=== PATIENT | female | born 1985 | race Caucasian/White ===

== ENCOUNTER 2017-12-30 11:08 | Inpatient (IN) | payer BC ==
[2017-12-30] MEDS ORDERED: Nalbuphine 20 MG/ML 1 ML Syringe IVPUSH PRN (11:32)
[2017-12-30] MEDS ORDERED: Sodium Chloride 0.9% 10 ML Syringe FLUSH PRN (11:32)
[2017-12-30] MEDS ORDERED: Ondansetron 4 MG/2 ML SDV IVPUSH PRN (11:32)
--- NOTE | 2017-12-30 11:34 | PCM.LDHP ---
L&D History of Present Illness - General Date of Service: 12/30/17 Admit Problem/Dx: Patient Status Order with Admit Dx/Problem 12/30/17 11:32 Patient Status [ADT] Routine Admission Diagnosis/Problem Admission Diagnosis/Problem Normal Source of Information: Patient History Limitations: Reports: No Limitations - History of Present Illness Introduction:: Patient is a 32 y/o at 39 1/7 wks who presents to L&D for IOL after clinic appointment today. Today noted decreased FM the last 2 days. NST in clinic was non reactive with several small variable decelerations. Patient noted to be 4 cm dilated in clinic. Reviewed options for additional testing vs moving on to IOL and patient ultimately elected for IOL. Otherwise doing well. 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: 2 Social & Family History - Family History Family Medical History: Noncontributory - Tobacco Use Smoking Status *Q: Former Smoker - Alcohol Use Alcohol Use History: No - Recreational Drug Use Recreational Drug Use: No H&P Review of Systems - Review of Systems: Review Of Systems: See Below General: Reports: No Symptoms Pulmonary: Reports: No Symptoms Cardiovascular: Reports: No Symptoms Gastrointestinal: Reports: No Symptoms Genitourinary: Reports: No Symptoms Musculoskeletal: Reports: No Symptoms Psychiatric: Reports: No Symptoms Neurological: Reports: No Symptoms L&D Exam - Exam Exam: See Below - OB Specific Contraction Intensity: Mild Movement: Active Heart Tones: Present Heart Tones per Min: 160 Heart Rate (FHR) Variability: Moderate (6-25 bmp) Presentation: Vertex - Guthrie Score Guthrie Score Cervix Position: Midposition Guthrie Score Consistency: Soft Guthrie Score Effacement: >80% Guthrie Score Dilation: 3-4 cm Guthrie Score 's Station: -2 Guthrie Score Total: 9 - Exam General: Alert, Oriented, Cooperative Lungs: Clear to Auscultation, Normal Respiratory Effort Cardiovascular: Regular Rate, Regular Rhythm GI/Abdominal Exam: Soft, Non-Tender Genitourinary: Normal external exam Extremities: Normal Inspection Skin: Warm, Dry, Intact - Patient Data Result Diagrams: 12/30/17 11:30 - Problem List (1) 39 weeks gestation of SNOMED Code(s): 28921484 ICD Code: Z3A.39 - 39 WEEKS GESTATION OF Status: Acute Current Visit: Yes Problem List Initiated/Reviewed/Updated: Yes Orders Last 24hrs: Active Orders 24 hr Category Date Time Status Patient Status [ADT] Routine ADT 12/30/17 11:32 Ordered Activity as Tolerated [RC] PFP Care 12/30/17 11:32 Ordered Communication Order [RC] ASDIRECTED Care 12/30/17 11:32 Ordered Heart Tones [RC] ASDIRECTED Care 12/30/17 11:33 Ordered Non Stress Test [RC] PER UNIT ROUTINE Care 12/30/17 11:32 Ordered Notify Provider [RC] PFP Care 12/30/17 11:32 Ordered Notify Provider [RC] PRN Care 12/30/17 11:32 Ordered Peripheral IV Care [RC] . DIRECTED Care 12/30/17 11:33 Ordered Vital Signs [RC] PER UNIT ROUTINE Care 12/30/17 11:32 Ordered Regular Diet [DIET] Diet 12/30/17 Lunch Ordered CBC W/O DIFF,HEMOGRAM [HEME] Routine Lab 12/30/17 11:32 Ordered RAPID PLASMA REAGIN,RPR [CHEM] Routine Lab 12/30/17 11:32 Ordered TYPE AND SCREEN [BBK] Routine Lab 12/30/17 11:32 Ordered Lactated Ringers [Ringers, Lactated] 1,000 ml Med 12/30/17 11:45 Ordered IV ASDIRECTED Nalbuphine [Nubain] Med 12/30/17 11:32 Ordered 10 mg IVPUSH Q2H PRN Ondansetron [Zofran] Med 12/30/17 11:32 Ordered 4 mg IVPUSH Q4H PRN Oxytocin/Lactated Ringers [Pitocin in LR 10 Units/1,000 Med 12/30/17 11:45 Ordered ML] 10 unit in 1,000 ml IV .CONTINUOUS Sodium Chloride 0.9% [Saline Flush] Med 12/30/17 11:32 Ordered 10 ml FLUSH ASDIRECTED PRN Electronic Heart Tones Ext w TOCO [WOMSER] Ot 12/30/17 11:32 Ordered Routine Electronic Heart Tones Internal [WOMSER] Per Unit Ot 12/30/17 11:32 Ordered Routine Peripheral IV Insertion Adult [OM.PC] Routine Ot 12/30/17 11:32 Ordered Resuscitation Status Routine Resus Stat 12/30/17 11:32 Ordered Assessment/Plan Comment:: 32 y/o at 39 1/7 wks presents for IOL after complaints of decreased FM and NRST in clinic * Labs drawn * Pain management per patient preference * AROM performed. Consider pitocin if needed * GBS negative, no need for antibiotics * Anticipate
[2017-12-30] MEDS ORDERED: Oxytocin/Lactated Ringers 10 UNIT/1,000 ML BAG IV SCH (11:45)
--- NOTE | 2017-12-30 12:56 | PCM.PREANE ---
Preanesthetic Assessment - Procedure Proposed Procedure: josefina - Anesthesia/Transfusion/Family Hx Anesthesia History: Prior Anesthesia Without Reaction Family History of Anesthesia Reaction: No Transfusion History: No Prior Transfusion(s) - Review of Systems General: No Symptoms Pulmonary: No Symptoms Cardiovascular: No Symptoms Gastrointestinal: No Symptoms Neurological: No Symptoms Other: Reports: None - Physical Assessment Pulse: 99 O2 Sat by Pulse Oximetry: 99 Respiratory Rate: 20 Height: 5 ft 5 in Weight: 96.615 kg ASA Class: 2 Mental Status: Alert & Oriented x3 Airway Class: Mallampati = 1 Dentition: Reports: Normal Dentition Thyro-Mental Finger Breadths: 3 Mouth Opening Finger Breadths: 3 ROM/Head Extension: Full Lungs: Clear to Auscultation, Normal Respiratory Effort Cardiovascular: Regular Rate, Regular Rhythm - Lab Values: Laboratory Last Values WBC 10.49 K/mm3 (3.98-10.04) H 12/30/17 11:30 RBC 4.23 M/mm3 (3.98-5.22) 12/30/17 11:30 Hgb 12.2 gm/L (11.2-15.7) 12/30/17 11:30 Hct 37.4 % (34.1-44.9) 12/30/17 11:30 MCV 88.4 fl (79.4-94.8) 12/30/17 11:30 MCH 28.8 pg (25.6-32.2) 12/30/17 11:30 MCHC 32.6 g/dl (32.2-35.5) 12/30/17 11:30 RDW Std Deviation 45.8 fL (36.4-46.3) 12/30/17 11:30 Plt Count 128 K/mm3 (182-369) L 12/30/17 11:30 MPV 12.5 fl (9.4-12.3) H 12/30/17 11:30 - Allergies Allergies/Adverse Reactions: Allergies Allergy/AdvReac Type Severity Reaction Status Date / Time No Known Allergies Allergy Verified 06/28/15 13:24 - Blood Blood Available: No - Acknowledgements Anesthesia Type Planned: Epidural Pt an Appropriate Candidate for the Planned Anesthesia: Yes Alternatives and Risks of Anesthesia Discussed w Pt/Guardian: Yes Pt/Guardian Understands and Agrees with Anesthesia Plan: Yes PreAnesthesia Questionnaire - Past Health History Medical/Surgical History: Denies Medical/Surgical History Cardiovascular History: Reports: None Respiratory History: Reports: None Gastrointestinal History: Reports: GERD (with preg) 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) Para: 2 Other OB/BYN History: PCOS Other Hematologic History: Pt states she has had low platelets but they have been about 120,000 - SUBSTANCE USE Smoking Status *Q: Never Smoker Tobacco Use Within Last Twelve Months: No Second Hand Smoke Exposure: No Days Per Week of Alcohol Use: 0 Recreational Drug Use History: No - HOME MEDS Home Medications: Home Meds PNV95/Ferrous Fumarate/FA [ Tablet] 1 each PO DAILY 06/28/15 [History] Docusate Sodium [Colace] 100 mg PO BID PRN #0 cap 06/29/15 [Rx] - CURRENT (IN HOUSE) MEDS Current Meds: Current Medications Lactated Ringer's (Ringers, Lactated) 1,000 mls @ 40 mls/hr IV ASDIRECTED MATEUS Oxytocin/Lactated Ringer's (Pitocin In Lr 10 Units/1,000 Ml) 10 unit in 1,000 mls @ 500 mls/hr IV .CONTINUOUS MATEUS Nalbuphine HCl (Nubain) 10 mg IVPUSH Q2H PRN PRN Reason: pain Ondansetron HCl (Zofran) 4 mg IVPUSH Q4H PRN PRN Reason: Nausea/Vomiting Sodium Chloride (Saline Flush) 10 ml FLUSH ASDIRECTED PRN PRN Reason: Keep Vein Open
[2017-12-30] MEDS ORDERED: ePHEDrine 50 MG/ML SDV IVPUSH PRN (13:21)
[2017-12-30] MEDS ORDERED: fentaNYL 100 MCG/2 ML SDV EPIDUR PRN (13:21)
[2017-12-30] MEDS ORDERED: diphenhydrAMINE 50 MG/ML SDV IVPUSH PRN (13:21)
[2017-12-30] MEDS ORDERED: Bupivacaine/fentaNYL/NS 100 ML Bag EPIDUR SCH (13:30)
[2017-12-30] MEDS: Lactated Ringers 1,000 ML IV SCH ×2 (13:50→14:14)
--- NOTE | 2017-12-30 19:41 | PCM.DEL ---
L & D Note - General Info Date of Service: 12/30/17 - Delivery Note Labor: Induced by ARM Delivery Outcome: Livebirth Infant Delivery Method: Spontaneous Vaginal Delivery-Single Infant Delivery Mode: Spontaneous Presentation: Left Occiput Anterior (MANUEL) Nuchal Cord: None Anesthesia Type: Epidural Amniotic Fluid Description: Clear Episiotomy Type: None Laceration: 2nd Degree, Perineal Suture type: Vicryl Suture size: 2-0 Placenta: Intact, Spontaneous Cord: 3 Vessels Estimated Blood Loss: 300 : Bulb Syringe, Stimulated, Warmed, Gibbon Used Score 1 min: 9 Score 5 min: 9 Delivery Comments (Free Text/Narrative):: Patient found to be complete and began pushing. With maternal pushing effort head delivered from an MANUEL presentation. No nuchal cord present. With gentle downward traction the shoulders and body delivered. placed on maternal abdomen. Cord clamped and cut. Cord blood obtained. Placenta allowed time separate and spontaneously expelled. Inspection of the perineum showed a 2nd degree laceration which was repaired with a 2-0 vicryl in the typical fashion. - General Info Date of Service: 12/30/17 - Patient Data Vitals - Most Recent: Last Vital Signs Temp 36.6 C 12/30/17 11:32 Pulse 99 12/30/17 12:55 Resp 20 12/30/17 12:55 BP 122/79 12/30/17 11:32 Pulse Ox 99 12/30/17 12:55 Weight - Most Recent: 96.615 kg I&O - Last 24 Hours: Intake & Output 12/30/17 12/30/17 12/30/17 06:59 14:59 22:59 Intake Total 2120 Balance 2120 Lab Results Last 24 Hours: Laboratory Results - last 24 hr 12/30/17 12/30/17 Range/Units 11:30 11:30 WBC 10.49 H (3.98-10.04) K/mm3 RBC 4.23 (3.98-5.22) M/mm3 Hgb 12.2 (11.2-15.7) gm/L Hct 37.4 (34.1-44.9) % MCV 88.4 (79.4-94.8) fl MCH 28.8 (25.6-32.2) pg MCHC 32.6 (32.2-35.5) g/dl RDW Std Deviation 45.8 (36.4-46.3) fL Plt Count 128 L (182-369) K/mm3 MPV 12.5 H (9.4-12.3) fl Blood Type A POSITIVE Gel Antibody Screen Negative Med Orders - Current: Current Medications Diphenhydramine HCl (Benadryl) 25 mg IVPUSH Q6H PRN PRN Reason: pruritis Ephedrine Sulfate (Ephedrine Sulfate) 5 mg IVPUSH ASDIRECTED PRN PRN Reason: Hypotension Fentanyl (Sublimaze) 100 mcg EPIDUR Q3H PRN PRN Reason: Pain Last Admin: 12/30/17 14:39 Dose: 100 mcg Fentanyl/Bupivacaine HCl (Fentanyl/Bupivacaine/Ns 2 Mcg-0.125% 100 Ml) 100 ml EPIDUR ASDIRECTED MATEUS Last Admin: 12/30/17 14:39 Dose: 100 ml Lactated Ringer's (Ringers, Lactated) 1,000 mls @ 40 mls/hr IV ASDIRECTED MATEUS Last Admin: 12/30/17 14:14 Dose: 999 mls/hr Oxytocin/Lactated Ringer's (Pitocin In Lr 10 Units/1,000 Ml) 10 unit in 1,000 mls @ 500 mls/hr IV .CONTINUOUS MATEUS Nalbuphine HCl (Nubain) 10 mg IVPUSH Q2H PRN PRN Reason: pain Ondansetron HCl (Zofran) 4 mg IVPUSH Q4H PRN PRN Reason: Nausea/Vomiting Sodium Chloride (Saline Flush) 10 ml FLUSH ASDIRECTED PRN PRN Reason: Keep Vein Open - Problem List & Annotations (1) 39 weeks gestation of SNOMED Code(s): 29340217 Code(s): Z3A.39 - 39 WEEKS GESTATION OF Status: Acute Current Visit: Yes (2) Vaginal delivery SNOMED Code(s): 994711277 Code(s): O80 - ENCOUNTER FOR FULL-TERM UNCOMPLICATED DELIVERY Status: Acute Current Visit: No - Problem List Review Problem List Initiated/Reviewed/Updated: Yes - My Orders Last 24 Hours: My Active Orders 12/30/17 11:30 RAPID PLASMA REAGIN,RPR [CHEM] Routine 12/30/17 11:32 Patient Status [ADT] Routine Activity as Tolerated [RC] PFP Communication Order [RC] ASDIRECTED Notify Provider [RC] PFP Notify Provider [RC] PRN Vital Signs [RC] PER UNIT ROUTINE Nalbuphine [Nubain] 10 mg IVPUSH Q2H PRN Ondansetron [Zofran] 4 mg IVPUSH Q4H PRN Sodium Chloride 0.9% [Saline Flush] 10 ml FLUSH ASDIRECTED PRN Electronic Heart Tones Ext w TOCO [WOMSER] Routine Electronic Heart Tones Internal [WOMSER] Per Unit Routine Peripheral IV Insertion Adult [OM.PC] Routine Resuscitation Status Routine 12/30/17 11:33 Heart Tones [RC] ASDIRECTED Peripheral IV Care [RC] . DIRECTED 12/30/17 11:45 Lactated Ringers [Ringers, Lactated] 1,000 ml IV ASDIRECTED Oxytocin/Lactated Ringers [Pitocin in LR 10 Units/1,000 ML] 10 unit in 1,000 ml IV .CONTINUOUS 12/30/17 Lunch Regular Diet [DIET] - Assessment Assessment:: 32 y/o G3 now P3003 PPD#0 from at 39 1/7 wks - Plan Plan:: * Routine cares * Encourage breast feeding * Discharge home in 1-2 days
[2017-12-30] MEDS ORDERED: Witch Hazel Medicated Pads 100/Jar TOP PRN (20:17)
[2017-12-30] MEDS ORDERED: Benzocaine/Menthol 20%-0.5% Spray 56 GM Canister TOP PRN (20:17)
[2017-12-30] MEDS ORDERED: Lanolin 100% Cream 7 GM Tube TOP PRN (20:17)
[2017-12-30] MEDS: Ibuprofen 600 MG Tab PO PRN (21:19)
[2017-12-30] MEDS ORDERED: Bupivacaine 0.25% 10 ML SDV ONE (22:00)
[2017-12-31] MEDS: Acetaminophen 325 MG Tab PO PRN ×2 (01:28→20:54)
[2017-12-31] MEDS: Ibuprofen 600 MG Tab PO PRN ×4 (03:28→22:50)
--- NOTE | 2017-12-31 07:04 | PCM.PNPP ---
- General Info Date of Service: 12/31/17 Functional Status: Reports: Pain Controlled, Tolerating Diet, Ambulating, Urinating - Review of Systems General: Reports: No Symptoms Pulmonary: Reports: No Symptoms Cardiovascular: Reports: No Symptoms Gastrointestinal: Reports: No Symptoms Genitourinary: Reports: No Symptoms Neurological: Reports: No Symptoms - Patient Data Vital Signs - Most Recent: Last Vital Signs Temp 36.6 C 12/31/17 03:30 Pulse 67 12/31/17 03:30 Resp 15 12/31/17 03:30 BP 102/73 12/31/17 03:30 Pulse Ox 97 12/31/17 03:30 Weight - Most Recent: 96.615 kg I&O - Last 24 Hours: Intake & Output 12/30/17 12/31/17 12/31/17 22:59 06:59 14:59 Intake Total 4120 Balance 4120 Lab Results - Last 24 Hours: Laboratory Results - last 24 hr 12/30/17 12/30/17 Range/Units 11:30 11:30 WBC 10.49 H (3.98-10.04) K/mm3 RBC 4.23 (3.98-5.22) M/mm3 Hgb 12.2 (11.2-15.7) gm/L Hct 37.4 (34.1-44.9) % MCV 88.4 (79.4-94.8) fl MCH 28.8 (25.6-32.2) pg MCHC 32.6 (32.2-35.5) g/dl RDW Std Deviation 45.8 (36.4-46.3) fL Plt Count 128 L (182-369) K/mm3 MPV 12.5 H (9.4-12.3) fl Blood Type A POSITIVE Gel Antibody Screen Negative Med Orders - Current: Current Medications Acetaminophen (Tylenol) 650 mg PO Q4H PRN PRN Reason: mild pain or fever Last Admin: 12/31/17 01:28 Dose: 650 mg Benzocaine/Menthol (Dermoplast Pain Relief [place]) 0 gm TOP ASDIRECTED PRN PRN Reason: Perineal Comfort Measure Last Admin: 12/30/17 21:19 Dose: 1 canister Docusate Sodium (Colace) 100 mg PO BID PRN PRN Reason: Constipation Emollient Ointment (Lansinoh Hpa) 0 gm TOP ASDIRECTED PRN PRN Reason: Sore Nipples Ibuprofen (Motrin) 600 mg PO Q6H PRN PRN Reason: Mild pain or fever Last Admin: 12/31/17 03:28 Dose: 600 mg Witch Yuliet (Tucks) 1 pad TOP ASDIRECTED PRN PRN Reason: Hemorrhoid pain Last Admin: 12/30/17 21:19 Dose: 1 tub Discontinued Medications Diphenhydramine HCl (Benadryl) 25 mg IVPUSH Q6H PRN PRN Reason: pruritis Ephedrine Sulfate (Ephedrine Sulfate) 5 mg IVPUSH ASDIRECTED PRN PRN Reason: Hypotension Fentanyl (Sublimaze) 100 mcg EPIDUR Q3H PRN PRN Reason: Pain Last Admin: 12/30/17 14:39 Dose: 100 mcg Fentanyl/Bupivacaine HCl (Fentanyl/Bupivacaine/Ns 2 Mcg-0.125% 100 Ml) 100 ml EPIDUR ASDIRECTED MATEUS Last Admin: 12/30/17 14:39 Dose: 100 ml Lactated Ringer's (Ringers, Lactated) 1,000 mls @ 40 mls/hr IV ASDIRECTED MATEUS Last Admin: 12/30/17 14:14 Dose: 999 mls/hr Oxytocin/Lactated Ringer's (Pitocin In Lr 10 Units/1,000 Ml) 10 unit in 1,000 mls @ 500 mls/hr IV .CONTINUOUS MATEUS Last Admin: 12/30/17 21:21 Dose: 500 mls/hr Nalbuphine HCl (Nubain) 10 mg IVPUSH Q2H PRN PRN Reason: pain Ondansetron HCl (Zofran) 4 mg IVPUSH Q4H PRN PRN Reason: Nausea/Vomiting Sodium Chloride (Saline Flush) 10 ml FLUSH ASDIRECTED PRN PRN Reason: Keep Vein Open - Infant Interaction Infant Disposition, : [place] in Room with Family Interaction: Holding Infant Infant Feeding: Breastfed ; Nursed Well Support Person: - Recovery Exam Fundal Tone: Firm Fundal Level: 1 Fingerbreadths Below Umbilicus Fundal Placement: Midline Lochia Amount: Small Lochia Color: Rubra/Red Perineum Description: Other (see below) Other Perinuem Description: 2nd degree laceration with repair Episiotomy/Laceration: Approximated Bladder Status: Voiding Urinary Elimination: Voided - Exam General: Alert, Oriented, Cooperative GI/Abdominal Exam: Soft, Non-Tender Extremities: Normal Inspection Skin: Warm, Dry, Intact - Problem List & Annotations (1) 39 weeks gestation of SNOMED Code(s): 46774320 Code(s): Z3A.39 - 39 WEEKS GESTATION OF Status: Acute Current Visit: Yes (2) Vaginal delivery SNOMED Code(s): 973513848 Code(s): O80 - ENCOUNTER FOR FULL-TERM UNCOMPLICATED DELIVERY Status: Acute Current Visit: No - Problem List Review Problem List Initiated/Reviewed/Updated: Yes - My Orders Last 24 Hours: My Active Orders 12/30/17 11:30 RAPID PLASMA REAGIN,RPR [CHEM] Routine 12/30/17 11:32 Resuscitation Status Routine 12/30/17 11:33 Heart Tones [RC] ASDIRECTED 12/30/17 20:17 Activity as Tolerated [RC] PER UNIT ROUTINE Vital Signs [RC] 03,09,15,21 Acetaminophen [Tylenol] 650 mg PO Q4H PRN Benzocaine/Menthol [Dermoplast Pain Relief [place]] See Dose Instructions TOP ASDIRECTED PRN Docusate Sodium [Colace] 100 mg PO BID PRN Ibuprofen [Motrin] 600 mg PO Q6H PRN Lanolin [Lansinoh HPA] See Dose Instructions TOP ASDIRECTED PRN Witch Yuliet [Tucks] 1 pad TOP ASDIRECTED PRN Assess Lochia [WOMSER] Per Unit Routine Assess Uterine Involution [WOMSER] Per Unit Routine Breast Pump [WOMSER] Per Unit Routine Heat Therapy [OM.PC] PRN Ice Therapy [OM.PC] Per Unit Routine Perineal Care [OM.PC] Per Unit Routine Peripheral IV Discontinue [OM.PC] Routine Sitz Bath [OM.PC] Per Unit Routine 12/30/17 Dinner Regular Diet [DIET] 12/31/17 20:17 Heat Therapy [OM.PC] PRN - Assessment Assessment:: 32 y/o G3 now P3003 PPD#1 from at 39 1/7 wks - Plan Plan:: * Routine cares * Encourage breast feeding * Discharge home tomorrow
[2017-12-31] MEDS: Docusate Sodium 100 MG Cap PO PRN (10:05)
[2018-01-01] MEDS: Docusate Sodium 100 MG Cap PO PRN (00:18)
--- NOTE | 2018-01-01 06:50 | PCM.DCSUM1 ---
Discharge Summary - Discharge Data Discharge Date: 01/01/18 Discharge Disposition: Home, Self-Care 01 Condition: Good - Discharge Diagnosis/Problem(s) (1) 39 weeks gestation of SNOMED Code(s): 79500879 ICD Code: Z3A.39 - 39 WEEKS GESTATION OF Status: Acute Current Visit: Yes (2) Vaginal delivery SNOMED Code(s): 380942117 ICD Code: O80 - ENCOUNTER FOR FULL-TERM UNCOMPLICATED DELIVERY Status: Acute Current Visit: No - Patient Summary/Data Complications: None Consults: None Recommended Follow-up Testing/Procedures: Follow up in 3-6 weeks for check Hospital Course: 32 y/o at 39 1/7 wks admitted from clinic after complaints of decreased fm and NRNST. IOL done with AROM alone. She progressed well to complete dilation and underwent an uncomplicated . See delivery note. she did well and was discharged home on PPD#2 - Patient Instructions Diet: Regular Diet as Tolerated Activity: As Tolerated Activity, Other: Pelvic Rest for 6 weeks Driving: May Drive Today Showering/Bathing: May Shower Showering/Bathing, Other: May Bathe Notify Provider of: Fever, Increased Pain, Swelling and Redness, Drainage, Nausea and/or Vomiting - Discharge Plan *PRESCRIPTION DRUG MONITORING PROGRAM REVIEWED*: Not Applicable *COPY OF PRESCRIPTION DRUG MONITORING REPORT IN PATIENT CASSIE: Not Applicable Home Medications: Home Meds PNV95/Ferrous Fumarate/FA [ Tablet] 1 each PO DAILY 06/28/15 [History] Docusate Sodium [Colace] 100 mg PO BID PRN #0 cap 06/29/15 [Rx] Ibuprofen [Motrin] 600 mg PO Q6H PRN tablet 12/31/17 [Rx] Referrals: Stella Gordon MD [Primary Care Provider] - (3-6 weeks for check ) - Discharge Summary/Plan Comment DC Time >30 min.: No - Patient Data Vitals - Most Recent: Last Vital Signs Temp 36.6 C 01/01/18 03:05 Pulse 79 01/01/18 03:05 Resp 15 01/01/18 03:05 BP 126/89 01/01/18 03:05 Pulse Ox 99 01/01/18 03:05 Weight - Most Recent: 96.615 kg I&O - Last 24 hours: Intake & Output 12/31/17 12/31/17 01/01/18 14:59 22:59 06:59 Intake Total 240 Balance 240 Lab Results - Last 24 hrs: Laboratory Results - last 24 hr 12/30/17 Range/Units 11:30 RPR Non-reactive (NONREACTIVE) Med Orders - Current: Current Medications Acetaminophen (Tylenol) 650 mg PO Q4H PRN PRN Reason: mild pain or fever Last Admin: 12/31/17 20:54 Dose: 650 mg Benzocaine/Menthol (Dermoplast Pain Relief [place]) 0 gm TOP ASDIRECTED PRN PRN Reason: Perineal Comfort Measure Last Admin: 12/30/17 21:19 Dose: 1 canister Docusate Sodium (Colace) 100 mg PO BID PRN PRN Reason: Constipation Last Admin: 01/01/18 00:18 Dose: 100 mg Emollient Ointment (Lansinoh Hpa) 0 gm TOP ASDIRECTED PRN PRN Reason: Sore Nipples Ibuprofen (Motrin) 600 mg PO Q6H PRN PRN Reason: Mild pain or fever Last Admin: 12/31/17 22:50 Dose: 600 mg Witch Yuliet (Tucks) 1 pad TOP ASDIRECTED PRN PRN Reason: Hemorrhoid pain Last Admin: 12/30/17 21:19 Dose: 1 tub Discontinued Medications Bupivacaine HCl (Sensorcaine-Mpf 0.25%) 10 ml .ROUTE .STK-MED ONE Stop: 12/30/17 22:01 Diphenhydramine HCl (Benadryl) 25 mg IVPUSH Q6H PRN PRN Reason: pruritis Ephedrine Sulfate (Ephedrine Sulfate) 5 mg IVPUSH ASDIRECTED PRN PRN Reason: Hypotension Fentanyl (Sublimaze) 100 mcg EPIDUR Q3H PRN PRN Reason: Pain Last Admin: 12/30/17 14:39 Dose: 100 mcg Fentanyl/Bupivacaine HCl (Fentanyl/Bupivacaine/Ns 2 Mcg-0.125% 100 Ml) 100 ml EPIDUR ASDIRECTED [facility] Last Admin: 12/30/17 14:39 Dose: 100 ml Lactated Ringer's (Ringers, Lactated) 1,000 mls @ 40 mls/hr IV ASDIRECTED [facility] Last Admin: 12/30/17 14:14 Dose: 999 mls/hr Oxytocin/Lactated Ringer's (Pitocin In Lr 10 Units/1,000 Ml) 10 unit in 1,000 mls @ 500 mls/hr IV .CONTINUOUS MATEUS Last Admin: 12/30/17 21:21 Dose: 500 mls/hr Nalbuphine HCl (Nubain) 10 mg IVPUSH Q2H PRN PRN Reason: pain Ondansetron HCl (Zofran) 4 mg IVPUSH Q4H PRN PRN Reason: Nausea/Vomiting Sodium Chloride (Saline Flush) 10 ml FLUSH ASDIRECTED PRN PRN Reason: Keep Vein Open
--- NOTE | 2018-01-01 06:50 | PCM.PNPP ---
- General Info Date of Service: 01/01/18 Functional Status: Reports: Pain Controlled, Tolerating Diet, Ambulating, Urinating - Review of Systems General: Reports: No Symptoms Pulmonary: Reports: No Symptoms Cardiovascular: Reports: No Symptoms Gastrointestinal: Reports: No Symptoms Genitourinary: Reports: No Symptoms Musculoskeletal: Reports: No Symptoms - Patient Data Vital Signs - Most Recent: Last Vital Signs Temp 36.6 C 01/01/18 03:05 Pulse 79 01/01/18 03:05 Resp 15 01/01/18 03:05 BP 126/89 01/01/18 03:05 Pulse Ox 99 01/01/18 03:05 Weight - Most Recent: 96.615 kg I&O - Last 24 Hours: Intake & Output 12/31/17 12/31/17 01/01/18 14:59 22:59 06:59 Intake Total 240 Balance 240 Lab Results - Last 24 Hours: Laboratory Results - last 24 hr 12/30/17 Range/Units 11:30 RPR Non-reactive (NONREACTIVE) Med Orders - Current: Current Medications Acetaminophen (Tylenol) 650 mg PO Q4H PRN PRN Reason: mild pain or fever Last Admin: 12/31/17 20:54 Dose: 650 mg Benzocaine/Menthol (Dermoplast Pain Relief [place]) 0 gm TOP ASDIRECTED PRN PRN Reason: Perineal Comfort Measure Last Admin: 12/30/17 21:19 Dose: 1 canister Docusate Sodium (Colace) 100 mg PO BID PRN PRN Reason: Constipation Last Admin: 01/01/18 00:18 Dose: 100 mg Emollient Ointment (Lansinoh Hpa) 0 gm TOP ASDIRECTED PRN PRN Reason: Sore Nipples Ibuprofen (Motrin) 600 mg PO Q6H PRN PRN Reason: Mild pain or fever Last Admin: 12/31/17 22:50 Dose: 600 mg Witch [place] (Tucks) 1 pad TOP ASDIRECTED PRN PRN Reason: Hemorrhoid pain Last Admin: 12/30/17 21:19 Dose: 1 tub Discontinued Medications Bupivacaine HCl (Sensorcaine-Mpf 0.25%) 10 ml .ROUTE .STK-MED ONE Stop: 12/30/17 22:01 Diphenhydramine HCl (Benadryl) 25 mg IVPUSH Q6H PRN PRN Reason: pruritis Ephedrine Sulfate (Ephedrine Sulfate) 5 mg IVPUSH ASDIRECTED PRN PRN Reason: Hypotension Fentanyl (Sublimaze) 100 mcg EPIDUR Q3H PRN PRN Reason: Pain Last Admin: 12/30/17 14:39 Dose: 100 mcg Fentanyl/Bupivacaine HCl (Fentanyl/Bupivacaine/Ns 2 Mcg-0.125% 100 Ml) 100 ml EPIDUR ASDIRECTED MATEUS Last Admin: 12/30/17 14:39 Dose: 100 ml Lactated Ringer's (Ringers, Lactated) 1,000 mls @ 40 mls/hr IV ASDIRECTED MATEUS Last Admin: 12/30/17 14:14 Dose: 999 mls/hr Oxytocin/Lactated Ringer's (Pitocin In Lr 10 Units/1,000 Ml) 10 unit in 1,000 mls @ 500 mls/hr IV .CONTINUOUS MATEUS Last Admin: 12/30/17 21:21 Dose: 500 mls/hr Nalbuphine HCl (Nubain) 10 mg IVPUSH Q2H PRN PRN Reason: pain Ondansetron HCl (Zofran) 4 mg IVPUSH Q4H PRN PRN Reason: Nausea/Vomiting Sodium Chloride (Saline Flush) 10 ml FLUSH ASDIRECTED PRN PRN Reason: Keep Vein Open - Interaction Infant Disposition, : [place] in Room with Family Interaction: Holding Feeding: Breastfed Infant; Nursed Well Support Person: - Recovery Exam Fundal Tone: Firm Fundal Level: 1 Fingerbreadths Below Umbilicus Fundal Placement: Midline Lochia Amount: Small Lochia Color: Rubra/Red Perineum Description: Other (see below) Other Perinuem Description: 2nd degree laceration with repair Episiotomy/Laceration: Approximated Bladder Status: Voiding Urinary Elimination: Voided - Exam General: Alert, Oriented, Cooperative GI/Abdominal Exam: Soft, Non-Tender Extremities: Normal Inspection Skin: Warm, Dry, Intact - Problem List & Annotations (1) 39 weeks gestation of SNOMED Code(s): 21836017 Code(s): Z3A.39 - 39 WEEKS GESTATION OF Status: Acute Current Visit: Yes (2) Vaginal delivery SNOMED Code(s): 281191439 Code(s): O80 - ENCOUNTER FOR FULL-TERM UNCOMPLICATED DELIVERY Status: Acute Current Visit: No - Problem List Review Problem List Initiated/Reviewed/Updated: Yes - My Orders Last 24 Hours: My Active Orders 12/31/17 20:17 Heat Therapy [OM.PC] PRN 01/01/18 06:49 Ready for Discharge [RC] PER UNIT ROUTINE - Assessment Assessment:: 32 y/o G3 now P3003 PPD#2 from at 39 1/7 wks - Plan Plan:: * Routine cares * Encourage breast feeding, also using some supplement * Discharge home today
[2018-01-01 08:58] VITALS: BP 118/91
== END 2018-01-01 08:20 | disposition home or self-care (01) | DRG 560 ==
LOC: JD.OB 11:08 → OBSVTOIN 19:20
PROVIDERS: ADMIT Obstetrics & Gynecology; ATTEND Obstetrics & Gynecology
PROC: 0KQM0ZZ Repair Perineum Muscle, Open Approach (ICD-10-PCS; principal; 2017-12-30)
PROC: 10E0XZZ Delivery of Products of Conception, External Approach (ICD-10-PCS; principal; 2017-12-30)
PROC: 10907ZC Drainage of Amniotic Fluid, Therapeutic from Products of Conception, Via Natural or Artificial Opening (ICD-10-PCS; principal; 2017-12-30)
DX: O36.8130 Decreased fetal movements, third trimester, not applicable or unspecified (principal); O76 Abnormality in fetal heart rate and rhythm complicating labor and delivery; Z3A.39 39 weeks gestation of pregnancy; Z37.0 Single live birth; Z87.891 Personal history of nicotine dependence; O70.1 Second degree perineal laceration during delivery
CPT/HCPCS: 01967; 36415; 51701; 59020; 59300; 59409; 85027; 86592; 86850; 86900; 86901; A9270-GY; J2590; J3010; J3490; J7120

== ENCOUNTER 2021-01-31 09:17 | Emergency (ER) | payer BC ==
[2021-01-31] MEDS ORDERED: Ondansetron 4 MG Tab.DIS PO ONE (10:59)
[2021-01-31] MEDS ORDERED: Ketorolac 60 MG/2 ML SDV IM ONE (10:59)
--- NOTE | 2021-01-31 11:55 | CR ---
Chest: Frontal view of the chest was obtained. Comparison: No prior chest imaging is available. Lung markings are slightly increased within the perihilar region. Difficult to exclude mild bronchitis or early COVID pneumonia. Lungs otherwise are clear. Heart size and mediastinum are normal. Bony structures appear without acute abnormality. Impression: 1. Lung markings are slightly increased compatible with mild bronchitis or early COVID pneumonia. 2. Frontal chest x-ray is otherwise unremarkable. Diagnostic code #3
[2021-01-31] MEDS ORDERED: Sodium Chloride 0.9% 10 ML Syringe FLUSH PRN (11:56)
[2021-01-31] MEDS ORDERED: Sodium Chloride 0.9% 1,000 ML IV STA (11:56)
[2021-01-31] MEDS ORDERED: Dexamethasone 4 MG/ML SDV IVPUSH ONE (11:58)
[2021-01-31] MEDS ORDERED: Albuterol 6.7 GM Inhaler INH ONE (11:58)
[2021-01-31] MEDS ORDERED: Acetaminophen 325 MG Tab PO ONE (12:48)
--- NOTE | 2021-01-31 13:27 | EDM.PDOC ---
ED HPI GENERAL MEDICAL PROBLEM - General Chief Complaint: General Stated Complaint: POSS COVID Time Seen by Provider: 01/31/21 10:38 Source of Information: Reports: Patient History Limitations: Reports: No Limitations - History of Present Illness INITIAL COMMENTS - FREE TEXT/NARRATIVE: The patient presents with possible COVID 19. She said this all started about 11 days ago. She has generalized weakness, fatigue, fever, cough, chills, nausea, diarrhea, and shortness of breath. She has been keeping fluids down. She has no medical problems such as asthma, COPD, diabetes, hypertension and hypercholesterolemia. She does not smoke. She also has a headache and body aches. Onset: Gradual Duration: Day(s): (11) Location: Reports: Head, Generalized Quality: Reports: Ache Severity: Moderate Improves with: Reports: None Worsens with: Reports: None Associated Symptoms: Reports: Cough, Fever/Chills, Headaches, Nausea/Vomiting, Shortness of Breath. Denies: Chest Pain Headache Pain Score (Numeric/FACES): 7 - Related Data Allergies Allergy/AdvReac Type Severity Reaction Status Date / Time No Known Allergies Allergy Verified 01/31/21 10:49 Home Meds: Home Meds Codeine/Promethazine [Phenergan with Codeine] 5 - 10 ml PO Q6HR PRN #300 ml 01/31/21 [Rx] Ondansetron [Zofran ODT] 4 mg PO Q6H PRN #20 tab.dis 01/31/21 [Rx] dexAMETHasone [Dexamethasone] 6 mg PO DAILY #12 tab 01/31/21 [Rx] Past Medical History - Past Health History Medical/Surgical History: Denies Medical/Surgical History Cardiovascular History: Reports: None Respiratory History: Reports: None Gastrointestinal History: Reports: GERD COMBINER History: Reports: Other COMBINER History: PCOS Hematologic History: Reports: Other (See Below) Other Hematologic History: Pt states she has had low platelets but they have been about 120,000 Social & Family History - Family History Family Medical History: No Pertinent Family History - Tobacco Use Tobacco Use Status *Q: Never Tobacco User Second Hand Smoke Exposure: No - Caffeine Use Caffeine Use: Reports: None - Recreational Drug Use Recreational Drug Use: No ED ROS GENERAL - Review of Systems Review Of Systems: See Below Constitutional: Reports: Fever, Chills, Malaise, Weakness, Fatigue HEENT: Reports: No Symptoms Respiratory: Reports: Shortness of Breath, Cough Cardiovascular: Reports: No Symptoms Endocrine: Reports: No Symptoms GI/Abdominal: Reports: Diarrhea, Nausea. Denies: Abdominal Pain, Vomiting : Reports: No Symptoms Musculoskeletal: Reports: No Symptoms Skin: Reports: No Symptoms ED EXAM, GENERAL - Physical Exam Exam: See Below Exam Limited By: No Limitations General Appearance: Alert, No Apparent Distress Ears: Normal External Exam Nose: Normal Inspection Head: Atraumatic, Normocephalic Neck: Normal Inspection Respiratory/Chest: No Respiratory Distress, Lungs Clear, Normal Breath Sounds Cardiovascular: Regular Rate, Rhythm, No Edema, No Murmur GI/Abdominal: Soft, Non-Tender, No Organomegaly, No Mass Back Exam: Normal Inspection Extremities: Normal Inspection Neurological: Alert, Oriented, No Motor/Sensory Deficits Course - Vital Signs Last Recorded V/S: Last Vital Signs Temp 97.3 F 01/31/21 10:47 Pulse 81 01/31/21 10:47 Resp 16 01/31/21 10:47 BP 118/92 H 01/31/21 10:47 Pulse Ox 97 01/31/21 10:47 - Orders/Labs/Meds Orders: Active Orders 24 hr Category Date Time Status Peripheral IV Care [RC] . DIRECTED Care 01/31/21 11:57 Active RT Post Treatment Assessment [RC] Click to Edit Care 01/31/21 11:58 Active RT Pre-Treatment Assessment [RC] Click to Edit Care 01/31/21 11:58 Active CBC WITH AUTO DIFF [HEME] Stat Lab 01/31/21 12:12 Results Sodium Chloride 0.9% [Saline Flush] Med 01/31/21 11:56 Active 10 ml FLUSH ASDIRECTED PRN Peripheral IV Insertion Adult [OM.PC] Stat Oth 01/31/21 11:56 Ordered Medication Orders Sodium Chloride (Sodium Chloride 0.9% 10 Ml Syringe) 10 ml FLUSH ASDIRECTED PRN PRN Reason: Keep Vein Open Last Admin: 01/31/21 12:20 Dose: 10 ml Documented by: GRACE Labs: Laboratory Tests 01/31/21 01/31/21 01/31/21 Range/Units 10:49 12:12 12:12 WBC 3.13 L (3.98-10.04) K/mm3 RBC 4.30 (3.98-5.22) M/mm3 Hgb 13.2 (11.2-15.7) gm/dl Hct 40.0 (34.1-44.9) % MCV 93.0 D (79.4-94.8) fl MCH 30.7 (25.6-32.2) pg MCHC 33.0 (32.2-35.5) g/dl RDW Std Deviation 44.0 (36.4-46.3) fL Plt Count 98 L (182-369) K/mm3 MPV 12.2 (9.4-12.3) fl Neut % (Auto) 72.9 H (34.0-71.1) % Lymph % (Auto) 20.4 (19.3-51.7) % [place] % (Auto) 6.1 (4.7-12.5) % Eos % (Auto) 0 L (0.7-5.8) Baso % (Auto) 0.3 (0.1-1.2) % Neut # (Auto) 2.28 (1.56-6.13) K/mm3 Lymph # (Auto) 0.64 L (1.18-3.74) K/mm3 [place] # (Auto) 0.19 L (0.24-0.36) K/mm3 Eos # (Auto) 0.00 L (0.04-0.36) K/mm3 Baso # (Auto) 0.01 (0.01-0.08) K/mm3 D-Dimer, Quantitative 0.72 H (0.19-0.50) mg/L Sodium (136-145) mEq/L Potassium (3.5-5.1) mEq/L Chloride (98-107) mEq/L Carbon Dioxide (21-32) mEq/L Anion Gap (5-15) BUN (7-18) mg/dL Creatinine (0.55-1.02) mg/dL Est Cr Clr Drug Dosing mL/min Estimated GFR (MDRD) (>60) mL/min BUN/Creatinine Ratio (14-18) Glucose (70-99) mg/dL Lactic Acid (0.4-2.0) mmol/L Calcium (8.5-10.1) mg/dL Ferritin (8-252) ng/ml Total Bilirubin (0.2-1.0) mg/dL AST (15-37) U/L ALT (14-59) U/L Alkaline Phosphatase (46-116) U/L Lactate Dehydrogenase (81-234) U/L Total Protein (6.4-8.2) g/dl Albumin (3.4-5.0) g/dl Globulin gm/dL Albumin/Globulin Ratio (1-2) Lipase (73-393) U/L SARS-CoV-2 RNA (MARCIA) Positive H (NEGATIVE) 01/31/21 01/31/21 01/31/21 Range/Units 12:12 12:12 12:12 WBC (3.98-10.04) K/mm3 RBC (3.98-5.22) M/mm3 Hgb (11.2-15.7) gm/dl Hct (34.1-44.9) % MCV (79.4-94.8) fl MCH (25.6-32.2) pg MCHC (32.2-35.5) g/dl RDW Std Deviation (36.4-46.3) fL Plt Count (182-369) K/mm3 MPV (9.4-12.3) fl Neut % (Auto) (34.0-71.1) % Lymph % (Auto) (19.3-51.7) % [place] % (Auto) (4.7-12.5) % Eos % (Auto) (0.7-5.8) Baso % (Auto) (0.1-1.2) % Neut # (Auto) (1.56-6.13) K/mm3 Lymph # (Auto) (1.18-3.74) K/mm3 [place] # (Auto) (0.24-0.36) K/mm3 Eos # (Auto) (0.04-0.36) K/mm3 Baso # (Auto) (0.01-0.08) K/mm3 D-Dimer, Quantitative (0.19-0.50) mg/L Sodium 141 (136-145) mEq/L Potassium 3.9 (3.5-5.1) mEq/L Chloride 105 (98-107) mEq/L Carbon Dioxide 28 (21-32) mEq/L Anion Gap 11.9 (5-15) BUN 5 L (7-18) mg/dL Creatinine 0.6 (0.55-1.02) mg/dL Est Cr Clr Drug Dosing 116.64 mL/min Estimated GFR (MDRD) > 60 (>60) mL/min BUN/Creatinine Ratio 8.3 L (14-18) Glucose 89 (70-99) mg/dL Lactic Acid 0.5 (0.4-2.0) mmol/L Calcium 8.4 L (8.5-10.1) mg/dL Ferritin 155 (8-252) ng/ml Total Bilirubin 0.3 (0.2-1.0) mg/dL AST 26 (15-37) U/L ALT 16 (14-59) U/L Alkaline Phosphatase 44 L (46-116) U/L Lactate Dehydrogenase 282 H (81-234) U/L Total Protein 7.4 (6.4-8.2) g/dl Albumin 3.3 L (3.4-5.0) g/dl Globulin 4.1 gm/dL Albumin/Globulin Ratio 0.8 L (1-2) Lipase 110 (73-393) U/L SARS-CoV-2 RNA (MARCIA) (NEGATIVE) Meds: Medications Generic Name Dose Route Start Last Admin Trade Name Fretoney PRN Reason Stop Dose Admin Sodium Chloride 10 ml 01/31/21 11:56 01/31/21 12:20 Sodium Chloride 0.9% 10 Ml Syringe FLUSH 10 ml ASDIRECTED PRN Administration Keep Vein Open Discontinued Medications Generic Name Dose Route Start Last Admin Trade Name Fretoney PRN Reason Stop Dose Admin Acetaminophen 650 mg 01/31/21 12:48 01/31/21 12:56 Acetaminophen 325 Mg Tab PO 01/31/21 12:49 650 mg NOW ONE Administration Albuterol 0 gm 01/31/21 11:58 01/31/21 12:16 Albuterol 6.7 Gm Inhaler INH 01/31/21 11:59 2 dose ONETIME ONE Administration Dexamethasone 6 mg 01/31/21 11:58 01/31/21 12:24 Dexamethasone 4 Mg/Ml Sdv IVPUSH 01/31/21 11:59 6 mg ONETIME ONE Administration Sodium Chloride 1,000 mls @ 1,000 mls/hr 01/31/21 11:56 01/31/21 12:24 Normal Saline IV 01/31/21 12:55 1,000 mls/hr .BOLUS STA Administration Ketorolac Tromethamine 60 mg 01/31/21 10:59 01/31/21 11:17 Ketorolac 60 Mg/2 Ml Sdv IM 01/31/21 11:00 60 mg ONETIME ONE Administration Ondansetron HCl 4 mg 01/31/21 10:59 01/31/21 11:18 Ondansetron 4 Mg Tab.Dis PO 01/31/21 11:00 4 mg ONETIME ONE Administration - Re-Assessments/Exams Free Text/Narrative Re-Assessment/Exam: 01/31/21 13:33 I ordered zofran 4mg ODT, CXR and COVID 19. Her CXR shows lung markings are slightly increased compatible with mild bronchitis or early COVID pneumonia. Frontal chest x-ray is otherwise unremarkable. She is COVID 19 positive. She is worried she may be dehydrated. I ordered an IV NS 1L bolus, toradol 30mg IV and benadryl 50mg IV for her headache. I also ordered albuterol 2 puffs for the COVID pneumonia and labs. Her WBC was low at 3.13. Her D-dimer was elevated at 0.72. Her lactic acid is normal. Her LDH is elevated at 282. I did also give her dexamethasone 6mg IV. 01/31/21 14:18 She feels better. She is not a candidate for the regneron. I will get her home on the dexamethasone, zofran, albuterol and phenergan with codeine. Departure - Departure Time of Disposition: 14:20 Disposition: Home, Self-Care 01 Condition: Good Clinical Impression: COVID-19, Pneumonia due to COVID-19 virus - Discharge Information *PRESCRIPTION DRUG MONITORING PROGRAM REVIEWED*: Not Applicable *COPY OF PRESCRIPTION DRUG MONITORING REPORT IN PATIENT CASSIE: Not Applicable Prescriptions: dexAMETHasone [Dexamethasone] 6 mg PO DAILY #12 tab Codeine/Promethazine [Phenergan with Codeine] 5 - 10 ml PO Q6HR PRN #300 ml PRN Reason: Cough Ondansetron [Zofran ODT] 4 mg PO Q6H PRN #20 tab.dis PRN Reason: Nausea\vomiting Referrals: Tiffanie Cuenca NP [Primary Care Provider] - 1 Week Forms: ED Department Discharge Additional Instructions: Drink plenty of fluids. Take dexamethasone 1.5 pill daily until gone. Use the inhaler 2 puffs every 6 hours as needed for shortness of breath. Take the zofran every 6 hours as needed for nausea and vomiting. Take the phenergan with codeine every 6 hours as needed for cough. Please return if you are worse. Sepsis Event Note (ED) - Evaluation Sepsis Screening Result: No Definite Risk - Focused Exam Vital Signs: Vital Signs Temp Pulse Resp BP Pulse Ox 01/31/21 10:47 97.3 F 81 16 118/92 H 97 - My Orders Last 24 Hours: My Active Orders 01/31/21 11:56 Sodium Chloride 0.9% [Saline Flush] 10 ml FLUSH ASDIRECTED PRN Peripheral IV Insertion Adult [OM.PC] Stat 01/31/21 11:57 Peripheral IV Care [RC] . DIRECTED 01/31/21 11:58 RT Post Treatment Assessment [RC] Click to Edit RT Pre-Treatment Assessment [RC] Click to Edit 01/31/21 12:12 CBC WITH AUTO DIFF [HEME] Stat - Assessment/Plan Last 24 Hours: My Active Orders 01/31/21 11:56 Sodium Chloride 0.9% [Saline Flush] 10 ml FLUSH ASDIRECTED PRN Peripheral IV Insertion Adult [OM.PC] Stat 01/31/21 11:57 Peripheral IV Care [RC] . DIRECTED 01/31/21 11:58 RT Post Treatment Assessment [RC] Click to Edit RT Pre-Treatment Assessment [RC] Click to Edit 01/31/21 12:12 CBC WITH AUTO DIFF [HEME] Stat
[2021-01-31 15:59] VITALS: BP 122/82; PULSE 77
== END 2021-01-31 14:37 | disposition home or self-care (01) ==
LOC: JD.ED 09:17
DX: U07.1 COVID-19 (principal); J12.82 Pneumonia due to coronavirus disease 2019; Z79.899 Other long term (current) drug therapy
CPT/HCPCS: 36415; 71045; 80053; 82728; 83605; 83615; 83690; 85025; 85379; 87635; 94640; 96372; 96374; 99285; A9270; J1100; J1885; J7030; U0002